=== PATIENT | female | born 1965 | race American Indian/Alaskan Native ===

== ENCOUNTER 2019-08-09 22:29 | Emergency (ER) | payer MEDICAID ==
[2019-08-09 23:32] VITALS: BP 159/80
[2019-08-10] MEDS ORDERED: IPRATROPIUM/ALBUTEROL SULFATE 3 ML AMPUL.NEB IH ONE (04:26)
[2019-08-10] MEDS ORDERED: dexAMETHasone 20 MG/5 ML VIAL IM ONE (04:26)
--- NOTE | 2019-08-10 05:31 | Emergency Department Report ---
ED General Adult HPI - General Chief complaint: Dyspnea/Respdistress Stated complaint: DIFF BREATHING COUGH BILATERAL EAR PAIN Time Seen by Provider: 08/10/19 04:15 Source: patient Mode of arrival: Ambulatory Limitations: No Limitations - History of Present Illness Initial comments: Patient is a 54-year-old female presents emergency room with complaints of intermittent URI symptoms for a month. She states she has associated dry cough, itchy dry throat, shortness of breath, bilateral ear pain. She denies any fever, leg swelling, chest pain, any other symptoms. She states that she went to her PCP a month ago and completed a course of azithromycin. She states then a couple weeks ago she went and completed a course of prednisone. States that s he also takes loratadine for allergies. She states she has a past medical history of asthma, hypertension, prediabetes. She denies any allergies medications. - Related Data Previous Rx's Medication Instructions Recorded Last Taken Type Benzonatate [Tessalon Perles] 100 mg PO Q8HR PRN #20 capsule 08/10/19 Unknown Rx Cetirizine HCl [Zyrtec 10mg tab] 10 mg PO DAILY #30 tablet 08/10/19 Unknown Rx Fluticasone [Flonase] 1 spray NS QDAY #1 bottle 08/10/19 Unknown Rx predniSONE [Deltasone] 40 mg PO QDAY 7 Days #14 tab 08/10/19 Unknown Rx Allergies Allergy/AdvReac Type Severity Reaction Status Date / Time No Known Allergies Allergy Unverified 08/09/19 23:33 ED Review of Systems ROS: Stated complaint: DIFF BREATHING COUGH BILATERAL EAR PAIN Other details as noted in HPI Comment: All other systems reviewed and negative ED Past Medical Hx - Past Medical History Hx Hypertension: Yes Hx Deep Vein Thrombosis: Yes (on Plavix stent in R leg) - Social History Smoking Status: Current Every Day Smoker Substance Use Type: None - Medications Home Medications: Home Medications Medication Instructions Recorded Confirmed Last Taken Type Benzonatate [Tessalon Perles] 100 mg PO Q8HR PRN #20 capsule 08/10/19 Unknown Rx Cetirizine HCl [Zyrtec 10mg tab] 10 mg PO DAILY #30 tablet 08/10/19 Unknown Rx Fluticasone [Flonase] 1 spray NS QDAY #1 bottle 08/10/19 Unknown Rx predniSONE [Deltasone] 40 mg PO QDAY 7 Days #14 tab 08/10/19 Unknown Rx ED Physical Exam - General Limitations: No Limitations General appearance: alert, in no apparent distress - Head Head exam: Present: atraumatic, normocephalic - Eye Eye exam: Present: normal appearance - ENT ENT exam: Present: normal orophraynx, mucous membranes moist, TM's normal bilaterally, normal external ear exam - Respiratory Respiratory exam: Present: wheezes (mild expiratory). Absent: respiratory distress, rales, rhonchi, stridor, chest wall tenderness, accessory muscle use, decreased breath sounds, prolonged expiratory - Cardiovascular Cardiovascular Exam: Present: regular rate, normal rhythm, normal heart sounds. Absent: systolic murmur, diastolic murmur, rubs, gallop - Neurological Exam Neurological exam: Present: alert, oriented X3 - Psychiatric Psychiatric exam: Present: normal affect, normal mood - Skin Skin exam: Present: warm, dry, intact ED Course Vital Signs 08/09/19 08/10/19 23:27 05:46 Temperature 98.3 F Pulse Rate 89 94 H Respiratory 18 18 Rate Blood Pressure 159/80 O2 Sat by Pulse 96 98 Oximetry ED Medical Decision Making - Medical Decision Making Patient is a 54-year-old female presents emergency room with complaints of intermittent URI symptoms for a month. She states she has associated dry cough, itchy dry throat, shortness of breath, bilateral ear pain. She denies any fever, leg swelling, chest pain, any other symptoms. She states that she went to her PCP a month ago and completed a course of azithromycin. She states then a couple weeks ago she went and completed a course of prednisone. States that she also takes loratadine for allergies. She states she has a past medical history of asthma, hypertension, prediabetes. She denies any allergies medications. VSS. on exam: mild expiratory wheeze, no rhonchi or rales. no clinical s/sx of PNA. wells criteria is very low risk for PE. pt given duoneb an d steroids and wheezing has completely resolved and pt has good air movement. symptoms and examination consistent with allergies/asthma. advised pt please take medication as prescribed. Stop taking the loratadine. May use a humidifier. May use warm saltwater gargles, drink warm tea, eat warm soup broth. Follow-up with your primary care doctor in the next 2-3 days. Return to the emergency room for any new or worsening symptoms. - Differential Diagnosis URI, PNA, bronchitis, asthma, allergies, viral syndrome Critical care attestation.: If time is entered above; I have spent that time in minutes in the direct care of this critically ill patient, excluding procedure time. ED Disposition Clinical Impression: Allergies Qualifiers: Encounter type: initial encounter Qualified Code(s): T78.40XA - Allergy, unspecified, initial encounter Asthma Qualifiers: Asthma severity: unspecified severity Asthma persistence: unspecified Asthma complication type: with acute exacerbation Qualified Code(s): J45.901 - Unspecified asthma with (acute) exacerbation Disposition: TO HOME OR SELFCARE Is pt being admited?: No Does the pt Need Aspirin: No Condition: Stable Instructions: Asthma (ED), Allergies (ED) Additional Instructions: please take medication as prescribed. Stop taking the loratadine. May use a humidifier. May use warm saltwater gargles, drink warm tea, eat warm soup broth. Follow-up with your primary care doctor in the next 2-3 days. Return to the emergency room for any new or worsening symptoms. Prescriptions: predniSONE [Deltasone] 40 mg PO QDAY 7 Days #14 tab Fluticasone [Flonase] 1 spray NS QDAY #1 bottle Benzonatate [Tessalon Perles] 100 mg PO Q8HR PRN #20 capsule PRN Reason: cough' Cetirizine HCl [Zyrtec 10mg tab] 10 mg PO DAILY #30 tablet Referrals: PRIMARY CARE, [Primary Care Provider] - 2-3 Days Time of Disposition: 05:29 Print Language: NEPALI
== END 2019-08-10 05:46 | disposition home or self-care (01) ==
LOC: ED 22:29
DX: T78.40XA Allergy, unspecified, initial encounter (principal); J45.909 Unspecified asthma, uncomplicated; H92.03 Otalgia, bilateral; I10 Essential (primary) hypertension; F17.200 Nicotine dependence, unspecified, uncomplicated; Z86.718 Personal history of other venous thrombosis and embolism; Z79.02 Long term (current) use of antithrombotics/antiplatelets; Z79.899 Other long term (current) drug therapy; X58.XXXA Exposure to other specified factors, initial encounter; Y93.89 Activity, other specified; Y92.89 Other specified places as the place of occurrence of the external cause; Y99.8 Other external cause status
CPT/HCPCS: 94640; 96372; 99282; J1100

== ENCOUNTER 2019-09-06 17:38 | Emergency (ER) | payer MEDICAID ==
--- NOTE | 2019-09-06 19:52 | Emergency Department Report ---
Blank Doc - Documentation Documentation: 54-year-old female that presents with URI symptoms. This initial assessment/diagnostic orders/clinical plan/treatment(s) is/are subject to change based on patient's health status, clinical progression and re- assessment by fellow clinical providers in the ED. Further treatment and workup at subsequent clinical providers discretion. Patient/guardians urged not to elope from the ED as their condition may be serious if not clinically assessed and managed. Initial orders include: 1- Patient sent to [facility] for further evaluation and treatment 2- CXR
--- NOTE | 2019-09-06 20:52 | XRay Report ---
CHEST 2 VIEWS INDICATION: cough. COMPARISON: None. FINDINGS: Support devices: None. Heart: Within normal limits. Lungs/Pleura: No acute air space or interstitial disease. No significant pleural effusion. IMPRESSION: No acute findings. Signer Name: Jordan Urrutia MD Signed: 09/06/2019 8:48 PM Workstation Name: [id number]
--- NOTE | 2019-09-06 23:05 | Emergency Department Report ---
HPI - General Chief Complaint: Upper Respiratory Infection Time Seen by Provider: 09/06/19 19:52 - HPI HPI: 54-year-old -N[place]alese female presents to the emergency department with a complaint of a productive cough with yellowish sputum and some body aches. The patient was here on 08/10/19 for similar symptoms and was discharged home with Tessalon Perles, Zyrtec, Flonase and some prednisone. She says that the symptoms didn't go away but then they returned. She has complains of some pain to the left side of the neck where she thinks that she has a lymph node. She has a past medical history of DVT, hypertension, hypercholesterolemia. She goes to [facility] for primary care needs. No recent travel. ED Past Medical Hx - Past Medical History Previous Medical History?: Yes Hx Hypertension: Yes Hx Deep Vein Thrombosis: Yes (on Plavix stent in R leg) Additional medical history: high cholesterol - Social History Smoking Status: Former Smoker Substance Use Type: None - Medications Home Medications: Home Medications Medication Instructions Recorded Confirmed Last Taken Type Cetirizine HCl [Zyrtec 10mg tab] 10 mg PO DAILY #30 tablet 08/10/19 Unknown Rx Fluticasone [Flonase] 1 spray NS QDAY #1 bottle 08/10/19 Unknown Rx predniSONE [Deltasone] 40 mg PO QDAY 7 Days #14 tab 08/10/19 Unknown Rx Albuterol INH(or & Nicu Only) 2 puff IH QID PRN #1 inh 09/07/19 Unknown Rx [ProAir HFA Inhaler] Benzonatate [Tessalon Perles] 100 mg PO Q8HR PRN #20 capsule 09/07/19 Unknown Rx Oseltamivir [Tamiflu] 75 mg PO BID #10 cap 09/07/19 Unknown Rx ED Review of Systems ROS: Stated complaint: FLU SYM Other details as noted in HPI Comment: All other systems reviewed and negative Constitutional: diaphoresis. denies: chills, fever Eyes: denies: eye pain, vision change ENT: denies: ear pain, throat pain Respiratory: cough. denies: shortness of breath Cardiovascular: denies: chest pain, palpitations Gastrointestinal: denies: abdominal pain, vomiting Genitourinary: denies: dysuria, discharge Musculoskeletal: myalgia. denies: joint swelling Skin: denies: rash, lesions Neurological: denies: headache, weakness Physical Exam - Physical Exam Vital Signs: Vital Signs 09/06/19 09/06/19 19:58 21:46 Temperature 98.7 F 98.9 F Pulse Rate 103 H 102 H Respiratory 18 18 Rate Blood Pressure 149/83 Blood Pressure 135/76 [Right] O2 Sat by Pulse 98 99 Oximetry Physical Exam: GENERAL: The patient is well-developed well-nourished. HEENT: Normocephalic. Atraumatic. Patient has moist mucous membranes. Normal-appearing bilateral external ear canals and tympanic membranes. EYES: Extraocular motions are intact. NECK: Supple. Trachea is midline CHEST/LUNGS: Clear to auscultation. No tachypnea or accessory muscle use. No cough heard during examination. There is no respiratory distress noted. HEART/CARDIOVASCULAR: Regular. There is no tachycardia. ABDOMEN: Abdomen is soft, nontender. Patient has normal bowel sounds. SKIN: Skin is warm and dry. NEURO: The patient is awake, alert, and oriented. The patient is cooperative. The patient has no focal neurologic deficits. Normal speech. MUSCULOSKELETAL: There is no tenderness or deformity. There is no evidence of acute injury. ED Course Vital Signs 09/06/19 09/06/19 19:58 21:46 Temperature 98.7 F 98.9 F Pulse Rate 103 H 102 H Respiratory 18 18 Rate Blood Pressure 149/83 Blood Pressure 135/76 [Right] O2 Sat by Pulse 98 99 Oximetry ED Medical Decision Making - Radiology Data Radiology results: image reviewed interpreted by me: Chest x-ray does not show any pneumonia, pneumothorax, focal consolidation, pleural effusions, or any other acute process. - Medical Decision Making This patient presents to the emergency department with the complaint of a productive cough that she was seen for here in mid July and then has since returned. On examination she does not appear in any acute or respiratory distress. Chest x-ray does not show any pneumonia, pleural effusions, or any other acute process. The patient's granddaughter is currently being seen here for some other symptoms and was found to have influenza A. This patient did not receive any flu vaccination this year and has obviously been exposed to her granddaughter. She has also been prescribed Tamiflu, on top of the Tessalon Perles and albuterol inhaler. She also has been instructed to follow-up with her primary care physician and to return to the ER with any worsening of her symptoms or any acute distress. - Differential Diagnosis bronchitis, viral URI, pneumonia, influenza Critical Care Time: No Critical care attestation.: If time is entered above; I have spent that time in minutes in the direct care of this critically ill patient, excluding procedure time. ED Disposition Clinical Impression: Viral upper respiratory infection, Bronchitis Disposition: TO HOME OR SELFCARE Is pt being admited?: No Condition: Stable Instructions: Upper Respiratory Infection (ED), Acute Bronchitis (ED) Additional Instructions: Please follow up with your primary care physician in the next few days. Return to the emergency Department with any worsening of your symptoms or any acute distress. Prescriptions: Albuterol INH(or & Nicu Only) [ProAir HFA Inhaler] 2 puff IH QID PRN #1 inh PRN Reason: Shortness Of Breath Oseltamivir [Tamiflu] 75 mg PO BID #10 cap Benzonatate [Tessalon Perles] 100 mg PO Q8HR PRN #20 capsule PRN Reason: cough' Referrals: PRIMARY CARE, [Primary Care Provider] - 3-5 Days Time of Disposition: 02:51
[2019-09-07 01:17] VITALS: BP 135/81
== END 2019-09-07 01:18 | disposition home or self-care (01) ==
LOC: ED 17:38
DX: J40 Bronchitis, not specified as acute or chronic (principal); J06.9 Acute upper respiratory infection, unspecified; I10 Essential (primary) hypertension; E78.00 Pure hypercholesterolemia, unspecified; Z87.891 Personal history of nicotine dependence; Z79.899 Other long term (current) drug therapy
CPT/HCPCS: 71046

== ENCOUNTER 2019-10-24 23:34 | Emergency (ER) | payer MEDICAID ==
--- NOTE | 2019-10-25 00:21 | XRay Report ---
CHEST 1 VIEW INDICATION / CLINICAL INFORMATION: Chest Pain. COMPARISON: 09/06/2019 FINDINGS: SUPPORT DEVICES: None. HEART / MEDIASTINUM: No significant abnormality. LUNGS / PLEURA: No significant pulmonary or pleural abnormality. No pneumothorax. ADDITIONAL FINDINGS: No significant additional findings. IMPRESSION: 1. No significant change Signer Name: Morteza Elizondo MD Signed: 10/25/2019 12:17 AM Workstation Name: [id number]
[2019-10-25 00:24] LABS: Basophils # (Auto) 0.1 K/mm3 (0.0-0.1); Basophils % (Auto) 0.7 % (0.0-1.8); Eosinophils # (Auto) 0.2 K/mm3 (0.0-0.4); Hemoglobin 11.8 gm/dl (10.1-14.3); Lymphocytes # (Auto) 3.5 K/mm3 (1.2-5.4); Lymphocytes % (Auto) 29.4 % (13.4-35.0); Mean Corpuscular HGB Conc 33 % (30-34); Mean Corpuscular Volume 74 fl (79-97); Monocytes # (Auto) 0.7 K/mm3 (0.0-0.8); Monocytes % (Auto) 5.8 % (0.0-7.3); Platelet Count 372 K/mm3 (140-440); Red Blood Count 4.85 M/mm3 (3.65-5.03); Red Cell Distribution Width 16.3 % (13.2-15.2)
[2019-10-25 00:39] LABS: Bacteria,Urine 1+ /HPF (Negative); Bilirubin,Urine NEG (Negative); Blood,Urine NEG (Negative); Color,Urine Straw (Yellow); Protein,Urine <15 mg/dL mg/dL (Negative); Urobilinogen,Urine < 2.0 mg/dL (<2.0)
[2019-10-25 00:45] LABS: BUN/Creatinine Ratio 18; Blood Urea Nitrogen 14 mg/dL (7-17); Hemolysis Index 5
[2019-10-25] MEDS ORDERED: IBUPROFEN 400 MG TAB PO ONE (01:43)
[2019-10-25] MEDS ORDERED: ACETAMINOPHEN 500 MG TAB PO ONE (01:43)
[2019-10-25] MEDS ORDERED: FAMOTIDINE 20 MG TAB PO ONE (01:43)
[2019-10-25] MEDS ORDERED: SUCRALFATE 1 GM/10 ML ORAL LIQD PO ONE (01:43)
--- NOTE | 2019-10-25 01:47 | Emergency Department Report ---
ED General Adult HPI - General Chief complaint: Chest Pain Stated complaint: CONSTIPATION, CHILLS, FREQUENCY URINATING Time Seen by Provider: 10/25/19 00:53 Source: patient, RN notes reviewed Mode of arrival: Ambulatory Limitations: No Limitations - History of Present Illness Initial comments: Primary care doctor: [facility] Past medical history: Obesity, peripheral artery disease, stent in the right leg, hypertension, high cholesterol on Plavix. 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 There is no fever, vomiting, diaphoresis, there is no new exertional shortness of breath. To me, she makes no complaint of bladder or bowel retention or incontinence. She has left-sided chest wall pain, which is intermittent, and does not radiate anywhere. To me, she does not endorse shortness of breath. She is passing gas. She is not having abdominal pain. No recent aspirin consumption. Chest wall pain aching and throbbing, increases with palpation, and decreases with rest. Sensation of acid reflux pain does not appear to have exacerbating or relieving factors that she is aware of. Constipation does not appear to have exacerbating or relieving factors that she is aware of. -: Gradual, days(s) Location: chest Radiation: other Quality: other Consistency: other Improves with: other Worsens with: other - Related Data Previous Rx's Medication Instructions Recorded Last Taken Type Cetirizine HCl [Zyrtec 10mg tab] 10 mg PO DAILY #30 tablet 08/10/19 Unknown Rx Fluticasone [Flonase] 1 spray NS QDAY #1 bottle 08/10/19 Unknown Rx predniSONE [Deltasone] 40 mg PO QDAY 7 Days #14 tab 08/10/19 Unknown Rx Albuterol INH(or & Nicu Only) 2 puff IH QID PRN #1 inh 09/07/19 Unknown Rx [ProAir HFA Inhaler] Benzonatate [Tessalon Perles] 100 mg PO Q8HR PRN #20 capsule 09/07/19 Unknown Rx Oseltamivir [Tamiflu] 75 mg PO BID #10 cap 09/07/19 Unknown Rx Acetaminophen [Non-Aspirin Extra 500 mg PO Q6HR PRN #30 tablet 10/25/19 Unknown Rx Strength] Famotidine [Pepcid] 20 mg PO BID #60 tablet 10/25/19 Unknown Rx Allergies Allergy/AdvReac Type Severity Reaction Status Date / Time No Known Allergies Allergy Verified 09/06/19 17:43 ED Review of Systems ROS: Stated complaint: CONSTIPATION, CHILLS, FREQUENCY URINATING Other details as noted in HPI Constitutional: chills. denies: fever Eyes: denies: eye discharge ENT: denies: congestion Respiratory: denies: wheezing Cardiovascular: chest pain. denies: syncope Gastrointestinal: constipation. denies: abdominal pain, nausea, vomiting, diarrhea Genitourinary: denies: dysuria, hematuria, discharge Musculoskeletal: denies: back pain Skin: as per HPI Neurological: as per HPI Psychiatric: as per HPI Hematological/Lymphatic: as per HPI ED Past Medical Hx - Past Medical History Previous Medical History?: Yes Hx Hypertension: Yes Hx Deep Vein Thrombosis: Yes (on Plavix stent in R leg) Additional medical history: high cholesterol - Surgical History Past Surgical History?: Yes Additional Surgical History: Stent placed Right Leg - Social History Smoking Status: Former Smoker - Medications Home Medications: Home Medications Medication Instructions Recorded Confirmed Last Taken Type Cetirizine HCl [Zyrtec 10mg tab] 10 mg PO DAILY #30 tablet 08/10/19 Unknown Rx Fluticasone [Flonase] 1 spray NS QDAY #1 bottle 08/10/19 Unknown Rx predniSONE [Deltasone] 40 mg PO QDAY 7 Days #14 tab 08/10/19 Unknown Rx Albuterol INH(or & Nicu Only) 2 puff IH QID PRN #1 inh 09/07/19 Unknown Rx [ProAir HFA Inhaler] Benzonatate [Tessalon Perles] 100 mg PO Q8HR PRN #20 capsule 09/07/19 Unknown Rx Oseltamivir [Tamiflu] 75 mg PO BID #10 cap 09/07/19 Unknown Rx Acetaminophen [Non-Aspirin Extra 500 mg PO Q6HR PRN #30 tablet 10/25/19 Unknown Rx Strength] Famotidine [Pepcid] 20 mg PO BID #60 tablet 10/25/19 Unknown Rx ED Physical Exam - General Limitations: No Limitations General appearance: alert, in no apparent distress - Head Head exam: Present: atraumatic, normocephalic - Eye Eye exam: Present: normal appearance, EOMI. Absent: nystagmus - ENT ENT exam: Present: normal exam, normal orophraynx, mucous membranes moist, normal external ear exam - Neck Neck exam: Present: normal inspection, full ROM. Absent: tenderness, meningismus - Respiratory Respiratory exam: Present: normal lung sounds bilaterally, chest wall tenderne ss. Absent: respiratory distress, wheezes, rales, rhonchi, stridor - Cardiovascular Cardiovascular Exam: Present: regular rate, normal rhythm, normal heart sounds. Absent: bradycardia, tachycardia, irregular rhythm, systolic murmur, diastolic murmur, rubs, gallop - GI/Abdominal GI/Abdominal exam: Present: soft, normal bowel sounds. Absent: distended, tenderness, guarding, rebound, rigid, pulsatile mass - Extremities Exam Extremities exam: Present: normal inspection, full ROM, other (2+ pulses noted in the bilateral upper and lower extremities. There is no palpable cord. negative Homans sign. Muscular compartments are soft. The pelvis is stable.). Absent: pedal edema, calf tenderness - Back Exam Back exam: Present: normal inspection, full ROM. Absent: tenderness, CVA tenderness (R), CVA tenderness (L), paraspinal tenderness, vertebral tenderness - Neurological Exam Neurological exam: Present: alert, other (There is no facial droop. The tongue is midline. Extraocular movements are intact bilaterally. There is 5 out of 5 strength in bilateral upper and lower extremities. Sensation is intact to light touch bilateral upper and lower extremities. ). Absent: motor sensory deficit - Psychiatric Psychiatric exam: Present: anxious - Skin Skin exam: Present: warm, dry, intact, normal color. Absent: rash ED Course Vital Signs 10/24/19 10/25/19 23:37 01:46 Temperature 99.0 F Pulse Rate 107 H 86 Respiratory 18 18 Rate Blood Pressure 176/87 Blood Pressure 151/78 [Right] O2 Sat by Pulse 97 97 Oximetry ED Medical Decision Making - Lab Data Result diagrams: 10/24/19 23:55 10/24/19 23:55 Vital Signs 10/24/19 10/25/19 23:37 01:46 Temperature 99.0 F Pulse Rate 107 H 86 Respiratory 18 18 Rate Blood Pressure 176/87 Blood Pressure 151/78 [Right] O2 Sat by Pulse 97 97 Oximetry Lab Results 10/24/19 10/24/19 10/25/19 Range/Units 23:55 23:55 00:17 WBC 12.0 H (4.5-11.0) K/mm3 RBC 4.85 (3.65-5.03) M/mm3 Hgb 11.8 (10.1-14.3) gm/dl Hct 36.0 (30.3-42.9) % MCV 74 L (79-97) fl MCH 24 L (28-32) pg MCHC 33 (30-34) % RDW 16.3 H (13.2-15.2) % Plt Count 372 (140-440) K/mm3 Lymph % (Auto) 29.4 (13.4-35.0) % [place] % (Auto) 5.8 (0.0-7.3) % Eos % (Auto) 2.0 (0.0-4.3) % Baso % (Auto) 0.7 (0.0-1.8) % Lymph # 3.5 (1.2-5.4) K/mm3 [place] # 0.7 (0.0-0.8) K/mm3 Eos # 0.2 (0.0-0.4) K/mm3 Baso # 0.1 (0.0-0.1) K/mm3 Seg Neutrophils % 62.1 (40.0-70.0) % Seg Neutrophils # 7.5 (1.8-7.7) K/mm3 Sodium 140 (137-145) mmol/L Potassium 3.9 (3.6-5.0) mmol/L Chloride 99.5 (98-107) mmol/L Carbon Dioxide 25 (22-30) mmol/L Anion Gap 19 mmol/L BUN 14 (7-17) mg/dL Creatinine 0.8 (0.7-1.2) mg/dL Estimated GFR > 60 ml/min BUN/Creatinine Ratio 18 % Glucose 133 H (65-100) mg/dL Calcium 10.0 (8.4-10.2) mg/dL Magnesium (1.7-2.3) mg/dL Total Creatine Kinase (30-135) units/L Troponin T < 0.010 (0.00-0.029) ng/mL Urine Color Straw (Yellow) Urine Turbidity Clear (Clear) Urine pH 6.0 (5.0-7.0) Ur Specific [place] 1.005 (1.003-1.030) Urine Protein <15 mg/dl (Negative) mg/dL Urine Glucose (UA) Neg (Negative) mg/dL Urine Ketones Neg (Negative) mg/dL Urine Blood Neg (Negative) Urine Nitrite Neg (Negative) Urine Bilirubin Neg (Negative) Urine Urobilinogen < 2.0 (<2.0) mg/dL Ur Leukocyte Esterase Neg (Negative) Urine WBC (Auto) 1.0 (0.0-6.0) /HPF Urine RBC (Auto) 1.0 (0.0-6.0) /HPF U Epithel Cells (Auto) < 1.0 (0-13.0) /HPF Urine Bacteria (Auto) 1+ (Negative) /HPF 10/25/19 Range/Units 01:56 WBC (4.5-11.0) K/mm3 RBC (3.65-5.03) M/mm3 Hgb (10.1-14.3) gm/dl Hct (30.3-42.9) % MCV (79-97) fl MCH (28-32) pg MCHC (30-34) % RDW (13.2-15.2) % Plt Count (140-440) K/mm3 Lymph % (Auto) (13.4-35.0) % [place] % (Auto) (0.0-7.3) % Eos % (Auto) (0.0-4.3) % Baso % (Auto) (0.0-1.8) % Lymph # (1.2-5.4) K/mm3 [place] # (0.0-0.8) K/mm3 Eos # (0.0-0.4) K/mm3 Baso # (0.0-0.1) K/mm3 Seg Neutrophils % (40.0-70.0) % Seg Neutrophils # (1.8-7.7) K/mm3 Sodium (137-145) mmol/L Potassium (3.6-5.0) mmol/L Chloride (98-107) mmol/L Carbon Dioxide (22-30) mmol/L Anion Gap mmol/L BUN (7-17) mg/dL Creatinine (0.7-1.2) mg/dL Estimated GFR ml/min BUN/Creatinine Ratio % Glucose (65-100) mg/dL Calcium (8.4-10.2) mg/dL Magnesium 2.00 (1.7-2.3) mg/dL Total Creatine Kinase 268 H (30-135) units/L Troponin T < 0.010 (0.00-0.029) ng/mL Urine Color (Yellow) Urine Turbidity (Clear) Urine pH (5.0-7.0) Ur Specific [place] (1.003-1.030) Urine Protein (Negative) mg/dL Urine Glucose (UA) (Negative) mg/dL Urine Ketones (Negative) mg/dL Urine Blood (Negative) Urine Nitrite (Negative) Urine Bilirubin (Negative) Urine Urobilinogen (<2.0) mg/dL Ur Leukocyte Esterase (Negative) Urine WBC (Auto) (0.0-6.0) /HPF Urine RBC (Auto) (0.0-6.0) /HPF U Epithel Cells (Auto) (0-13.0) /HPF Urine Bacteria (Auto) (Negative) /HPF - EKG Data -: EKG Interpreted by Ms EKG shows normal: sinus rhythm Rate: normal - EKG Data When compared to previous EKG there are: previous EKG unavailable 10/25/19 03:11 EKG #1 shows a sinus tachycardia, 100 bpm, borderline left ventricular hypertrophy, normal axis, QTC within normal limits, no obvious ST abnormalities, the EKG is not a STEMI. EKG #2 is unchanged from prior. Both EKGs fairly unremarkable, not consistent with ST elevation myocardial infarction. , - Radiology Data Radiology results: report reviewed, image reviewed Print Report Referring Physician: ED DOC Patient Name: SHAUNNA FITZGERALD Date of : 1965 Sex: Female Report Date: 2019-10-25 Report Status: Finalized Findings [facility] [address] [place] [address] XRay Report Signed Patient: SHAUNNA FITZGERALD MR#: [id number] : 1965 Acct:[id number] Age/Sex: 54 / F ADM Date: 10/24/19 Loc: ED Attending Dr: Ordering Physician: ED DOC, MD Date of Service: 10/24/19 Procedure(s): XR chest 1V ap Accession Number(s): [id number] cc: SUMA ROTH MD Fluoro Time In Minutes: CHEST 1 VIEW INDICATION / CLINICAL INFORMATION: Chest Pain. COMPARISON: 09/06/2019 FINDINGS: SUPPORT DEVICES: None. HEART / MEDIASTINUM: No significant abnormality. LUNGS / PLEURA: No significant pulmonary or pleural abnormality. No pneumothorax. ADDITIONAL FINDINGS: No significant additional findings. IMPRESSION: 1. No significant change Signer Name: Morteza Elizondo MD Signed: 10/25/2019 12:17 AM Workstation Name: [id number] Transcribed By: IAN Dictated By: Morteza Elizondo MD Electronically Authenticated By: Morteza Elizondo MD Signed Date/Time: 10/25/1916 DD/ - Medical Decision Making Differential diagnosis, including but not limited to: GERD, gastritis, hiatal hernia, pneumonia, costochondritis, acute coronary syndrome, constipation, acid reflux Assessment and plan: 54-year-old female with reproducible chest wall pain, EKG unchanged x2, resolved tachycardia, no pulmonary embolism or DVT risk factors, low risk by Wells criteria, low risk for major adverse cardiac event as per heart score, low risk by MONAE score, presenting with reproducible chest wall pain, and multiple secondary complaints. She is afebrile with reassuring vital signs. Her physical exam is benign and unremarkable, with the exception of reproducible chest wall pain. We discussed diet and left some modifications for presumed constipation, GERD/gastritis/reflux. Her symptoms were improved with supportive care. The patient is suitable to follow-up with an outpatient primary care doctor or web services architect to complete a cardiac risk stratification. She does not appear to have an emergent medical condition at this time. Critical care attestation.: If time is entered above; I have spent that time in minutes in the direct care of this critically ill patient, excluding procedure time. ED Disposition Clinical Impression: Chest wall pain Disposition: -01 TO HOME OR SELFCARE Is pt being admited?: No Does the pt Need Aspirin: No Condition: Stable Instructions: Chest Pain (ED) Additional Instructions: Avoid consumption of Motrin, ibuprofen, Naprosyn, Aleve, heavy and/or spicy foods. Recommend that patient drink 6 to 8 cups of water per day, and eats plenty of fiber, vegetables, and lean protein. Patient may also purchase Metamucil/fiber [id number], which may facilitate resolution of consti pation. Constipation typically takes weeks to months to improve. We recommend the patient follow-up with her primary care doctor or web services architect for her chest wall pain within the next 5 to 7 days. Avoid alcohol, and heavy and/or spicy foods. Take the pain medications as needed and directed, please return to the emergency room right away with new, worsened or different symptoms, or symptoms not present on the initial emergency room evaluation. Referrals: [facility] [Provider Group] - 3-5 Days [facility] [Provider Group] - 3-5 Days
[2019-10-25 03:47] VITALS: BP 150/76
== END 2019-10-25 03:47 | disposition home or self-care (01) ==
LOC: ED 23:34
DX: R07.89 Other chest pain (principal); R68.83 Chills (without fever); R35.0 Frequency of micturition; K59.00 Constipation, unspecified; I73.9 Peripheral vascular disease, unspecified; E66.9 Obesity, unspecified; I10 Essential (primary) hypertension; E78.00 Pure hypercholesterolemia, unspecified; Z98.890 Other specified postprocedural states; Z79.899 Other long term (current) drug therapy; Z87.891 Personal history of nicotine dependence; Z68.41 Body mass index [BMI] 40.0-44.9, adult
CPT/HCPCS: 36415; 71045; 80048; 81001; 82550; 83735; 84484; 85025; 93005; 93010

== ENCOUNTER 2019-11-14 21:10 | Inpatient (IN) | payer MEDICAID ==
--- NOTE | 2019-11-14 21:14 | Emergency Department Report ---
Blank Doc - Documentation Documentation: 54-year-old female that presents with cp, sob, and fatigue, This initial assessment/diagnostic orders/clinical plan/treatment(s) is/are subject to change based on patient's health status, clinical progression and re- assessment by fellow clinical providers in the ED. Further treatment and workup at subsequent clinical providers discretion. Patient/guardians urged not to elope from the ED as their condition may be serious if not clinically assessed and managed. Initial orders include: 1- Patient sent to [facility] for further evaluation and treatment 2- cardiac workup
[2019-11-14 21:46] LABS: Basophils # (Auto) 0.1 K/mm3 (0.0-0.1); Basophils % (Auto) 0.9 % (0.0-1.8); Eosinophils # (Auto) 0.1 K/mm3 (0.0-0.4); Eosinophils % (Auto) 0.6 % (0.0-4.3); Hematocrit 35.7 % (30.3-42.9); Hemoglobin 11.9 gm/dl (10.1-14.3); Lymphocytes # (Auto) 4.4 K/mm3 (1.2-5.4); Lymphocytes % (Auto) 33.3 % (13.4-35.0); Mean Corpuscular HGB Conc 33 % (30-34); Mean Corpuscular Volume 74 fl (79-97); Monocytes # (Auto) 0.7 K/mm3 (0.0-0.8); Monocytes % (Auto) 5.2 % (0.0-7.3); Platelet Count 427 K/mm3 (140-440); Red Blood Count 4.81 M/mm3 (3.65-5.03); Red Cell Distribution Width 16.2 % (13.2-15.2)
[2019-11-14 21:57] LABS: INR 1.03 (0.87-1.13); Partial Thromboplastin Time 26.3 Sec. (24.2-36.6)
[2019-11-14 22:00] LABS: Alanine Aminotransferase 21 units/L (7-56); Albumin 4.3 g/dL (3.9-5); BUN/Creatinine Ratio 14; Blood Urea Nitrogen 15 mg/dL (7-17); Calcium 9.6 mg/dL (8.4-10.2); Hemolysis Index 3
--- NOTE | 2019-11-14 22:07 | XRay Report ---
CHEST 2 VIEWS INDICATION / CLINICAL INFORMATION: MAIN: Chest Pain and SHORTNESS OF BREATH. COMPARISON: Chest radiograph 10/25/2019 FINDINGS: SUPPORT DEVICES: None. HEART / MEDIASTINUM: No significant abnormality. LUNGS / PLEURA: No significant pulmonary or pleural abnormality. No pneumothorax. ADDITIONAL FINDINGS: Multilevel degenerative disc disease in the thoracic spine. IMPRESSION: No acute finding. No significant change. Signer Name: Jose Jose MD Signed: 11/14/2019 10:02 PM Workstation Name: [id number]
[2019-11-15] MEDS ORDERED: ASPIRIN 81 MG TAB CHEW PO ONE (04:28)
--- NOTE | 2019-11-15 04:33 | Emergency Department Report ---
ED Chest Pain HPI - General Chief Complaint: Chest Pain Stated Complaint: THINKS SHE HAD A HEART ATTACK Time Seen by Provider: 11/14/19 21:13 Source: patient Mode of arrival: Ambulatory Limitations: No Limitations - History of Present Illness Initial Comments: Patient is 54 years old female with history of hypertension, diabetes and peripheral vascular disease status post stent. Patient presented to the ER complaining of left sided chest pain, tightness and heaviness in nature with radiation to the left upper extremity and neck and left jaw. Patient denies any shortness of breath, fever, nausea or vomiting. MD Complaint: chest pain -: Last night Onset: during rest Pain Location: left chest Pain Radiation: LUE, neck, jaw/teeth Severity: moderate Severity scale (0 -10): 5 Quality: tightness, heaviness Consistency: constant - Related Data Previous Rx's Medication Instructions Recorded Last Taken Type Cetirizine HCl [Zyrtec 10mg tab] 10 mg PO DAILY #30 tablet 08/10/19 Unknown Rx Fluticasone [Flonase] 1 spray NS QDAY #1 bottle 08/10/19 Unknown Rx predniSONE [Deltasone] 40 mg PO QDAY 7 Days #14 tab 08/10/19 Unknown Rx Albuterol INH(or & Nicu Only) 2 puff IH QID PRN #1 inh 09/07/19 Unknown Rx [ProAir HFA Inhaler] Benzonatate [Tessalon Perles] 100 mg PO Q8HR PRN #20 capsule 09/07/19 Unknown Rx Oseltamivir [Tamiflu] 75 mg PO BID #10 cap 09/07/19 Unknown Rx Acetaminophen [Non-Aspirin Extra 500 mg PO Q6HR PRN #30 tablet 10/25/19 Unknown Rx Strength] Famotidine [Pepcid] 20 mg PO BID #60 tablet 10/25/19 Unknown Rx Allergies Allergy/AdvReac Type Severity Reaction Status Date / Time No Known Allergies Allergy Verified 09/06/19 17:43 Heart Score - HEART Score History: Moderately suspicious EKG: Non-specific Age: 45-65 Risk factors: > 3 risk factors or hx of atherosclerotic disease Troponin: < normal limit HEART Score: 5 - Critical Actions Critical Actions: 4-6 pts:12-16.6% risk of adverse cardiac event. Should be admitted ED Review of Systems ROS: Stated complaint: THINKS SHE HAD A HEART ATTACK Other details as noted in HPI Comment: All other systems reviewed and negative Constitutional: denies: chills, fever Respiratory: denies: cough, shortness of breath, SOB with exertion Cardiovascular: chest pain Gastrointestinal: denies: abdominal pain, nausea, vomiting, diarrhea, constipation, hematemesis, melena, hematochezia Neurological: denies: headache, weakness ED Past Medical Hx - Past Medical History Hx Hypertension: Yes Hx Deep Vein Thrombosis: Yes (on Plavix stent in R leg) Additional medical history: high cholesterol - Surgical History Additional Surgical History: Stent placed Right Leg - Social History Smoking Status: Never Smoker Substance Use Type: None - Medications Home Medications: Home Medications Medication Instructions Recorded Confirmed Last Taken Type Cetirizine HCl [Zyrtec 10mg tab] 10 mg PO DAILY #30 tablet 08/10/19 Unknown Rx Fluticasone [Flonase] 1 spray NS QDAY #1 bottle 08/10/19 Unknown Rx predniSONE [Deltasone] 40 mg PO QDAY 7 Days #14 tab 08/10/19 Unknown Rx Albuterol INH(or & Nicu Only) 2 puff IH QID PRN #1 inh 09/07/19 Unknown Rx [ProAir HFA Inhaler] Benzonatate [Tessalon Perles] 100 mg PO Q8HR PRN #20 capsule 09/07/19 Unknown Rx Oseltamivir [Tamiflu] 75 mg PO BID #10 cap 09/07/19 Unknown Rx Acetaminophen [Non-Aspirin Extra 500 mg PO Q6HR PRN #30 tablet 10/25/19 Unknown Rx Strength] Famotidine [Pepcid] 20 mg PO BID #60 tablet 10/25/19 Unknown Rx ED Physical Exam - General Limitations: No Limitations General appearance: alert, in no apparent distress - Head Head exam: Present: atraumatic, normocephalic, normal inspection - Eye Eye exam: Present: normal appearance - ENT ENT exam: Present: normal exam, normal orophraynx, mucous membranes moist - Neck Neck exam: Present: normal inspection, full ROM. Absent: tenderness, meningismus, lymphadenopathy, thyromegaly - Respiratory Respiratory exam: Present: normal lung sounds bilaterally - Cardiovascular Cardiovascular Exam: Present: regular rate, normal rhythm, normal heart sounds - GI/Abdominal GI/Abdominal exam: Present: soft, normal bowel sounds. Absent: distended, tenderness, guarding, rebound, rigid, organomegaly, mass, bruit, pulsatile mass, hernia - Extremities Exam Extremities exam: Present: normal inspection, full ROM, normal capillary refill. Absent: tenderness, pedal edema, calf tenderness - Back Exam Back exam: Present: normal inspection, full ROM. Absent: CVA tenderness (R), CVA tenderness (L) - Neurological Exam Neurological exam: Present: alert, oriented X3, CN II-XII intact, normal gait, reflexes normal. Absent: motor sensory deficit - Psychiatric Psychiatric exam: Present: normal mood - Skin Skin exam: Present: warm, intact, normal color ED Course Vital Signs 11/14/19 11/15/19 21:16 02:19 Temperature 98.3 F 98.0 F Pulse Rate 111 H 90 Respiratory 20 18 Rate Blood Pressure 190/94 164/84 O2 Sat by Pulse 97 98 Oximetry ED Medical Decision Making - Lab Data Result diagrams: 11/14/19 21:23 11/14/19 21:23 - EKG Data -: EKG Interpreted by Id EKG shows normal: sinus rhythm Rate: tachycardia - EKG Data Interpretation: no acute changes - Radiology Data Radiology results: report reviewed - Medical Decision Making Patient is 54 years old female with history of hypertension, diabetes and peripheral vascular disease status post stent. Patient presented to the ER complaining of left sided chest pain, tightness and heaviness in nature with radiation to the left upper extremity and neck and left jaw. Patient denies any shortness of breath, fever, nausea or vomiting. EKG showed no ST elevation. Chest x-ray is unremarkable. Labs reviewed and is unremarkable including a negative troponin. Patient chest pain is typical for a ngina. I discussed the patient with Dr. Lovell, he agreed to admit the patient to medical service for further management. Critical care attestation.: If time is entered above; I have spent that time in minutes in the direct care of this critically ill patient, excluding procedure time. ED Disposition Clinical Impression: Chest pain Disposition: OP ADMIT IP TO THIS HOSP Is pt being admited?: Yes Condition: Stable Instructions: Chest Pain (ED) Referrals: [place] [Other] - 3-5 Days
[2019-11-15] MEDS ORDERED: NITROGLYCERIN 0.4 MG TAB SUBL SL PRN (05:18)
[2019-11-15] MEDS ORDERED: ACETAMINOPHEN 325 MG TAB PO PRN (05:18)
[2019-11-15] MEDS ORDERED: DEXTROSE 50% IN WATER (25GM) 50 ML SYRINGE IV PRN ×2 (05:18→05:24)
[2019-11-15] MEDS ORDERED: ONDANSETRON 4 MG/2 ML INJ IV PRN (05:18)
[2019-11-15] MEDS ORDERED: MORPHINE 2 MG/1 ML INJ IV PRN (05:18)
[2019-11-15] MEDS ORDERED: MAGNESIUM HYDROXIDE (MOM) ORAL LIQD UDC PO PRN (05:18)
--- NOTE | 2019-11-15 05:30 | History and Physical Report ---
History of Present Illness Date of examination: 11/15/19 Date of admission: 11/15/2019 Chief complaint: Chest pain History of present illness: 54-year-old -[place]og[place] female with known history of hypertension, diabetes mellitus and peripheral vascular disease presented to the emergency room today complaining of left-sided chest pain. Pain is said to be sharp radiating towards the left upper extremity and left side of the jaw. There is no known relieving or exacerbating factor. Patient denies any headache or dizziness, no nausea vomiting, no abdominal pain. Patient indicates that she has been quite compliant with her medications. Work-up in the emergency room so far has been unremarkable. Past History Past Medical History: diabetes, hypertension, hyperlipidemia, PVD Past Surgical History: Other (Stent placement in the right lower extremity) Social history: no significant social history Medications and Allergies Allergies Allergy/AdvReac Type Severity Reaction Status Date / Time No Known Allergies Allergy Verified 09/06/19 17:43 Home Medications Medication Instructions Recorded Confirmed Last Taken Type Cetirizine HCl [Zyrtec 10mg tab] 10 mg PO DAILY #30 tablet 08/10/19 Unknown Rx Fluticasone [Flonase] 1 spray NS QDAY #1 bottle 08/10/19 Unknown Rx predniSONE [Deltasone] 40 mg PO QDAY 7 Days #14 tab 08/10/19 Unknown Rx Albuterol INH(or & Nicu Only) 2 puff IH QID PRN #1 inh 09/07/19 Unknown Rx [ProAir HFA Inhaler] Benzonatate [Tessalon Perles] 100 mg PO Q8HR PRN #20 capsule 09/07/19 Unknown Rx Oseltamivir [Tamiflu] 75 mg PO BID #10 cap 09/07/19 Unknown Rx Acetaminophen [Non-Aspirin Extra 500 mg PO Q6HR PRN #30 tablet 10/25/19 Unknown Rx Strength] Famotidine [Pepcid] 20 mg PO BID #60 tablet 10/25/19 Unknown Rx Active Meds: Active Medications Acetaminophen (Tylenol) 650 mg PO Q4H PRN PRN Reason: Pain MILD(1-3)/Fever >100.5/ZEPEDA Aspirin (Ecotrin) 325 mg PO QDAY [facility] Dextrose (D50w (25gm) Syringe) 50 ml IV Q30MIN PRN; Protocol PRN Reason: Hypoglycemia Dextrose (D50w (25gm) Syringe) 50 ml IV Q30MIN PRN; Protocol PRN Reason: Hypoglycemia Insulin Human Lispro (Humalog) 0 unit SUB-Q ACHS CONNER; Protocol Magnesium Hydroxide (Milk Of Magnesia) 30 ml PO Q4H PRN PRN Reason: Constipation Morphine Sulfate (Morphine) 2 mg IV Q5MIN PRN PRN Reason: Chest Pain unrelieved by NTG Nitroglycerin (Nitrostat) 0.4 mg SL Q5M PRN PRN Reason: Chest Pain Ondansetron HCl (Zofran) 4 mg IV Q8H PRN PRN Reason: Nausea And Vomiting Sodium Chloride (Sodium Chloride Flush Syringe 10 Ml) 10 ml IV PRN PRN PRN Reason: LINE FLUSH Sodium Chloride (Sodium Chloride Flush Syringe 10 Ml) 10 ml IV BID CONNER Sodium Chloride (Sodium Chloride Flush Syringe 10 Ml) 10 ml IV PRN PRN PRN Reason: LINE FLUSH Review of Systems Constitutional: no fever, no chills Cardiovascular: chest pain, no palpitations Respiratory: shortness of breath, no cough Gastrointestinal: no abdominal pain, no nausea, no vomiting, no diarrhea Genitourinary Female: no dysuria, no hematuria Musculoskeletal: no neck pain, no low back pain Integumentary: no rash, no pruritis Neurological: no headaches, no confusion Exam - Constitutional Vitals: Temp Pulse Resp BP Pulse Ox 98.2 F 79 15 176/80 100 11/15/19 04:35 11/15/19 04:35 11/15/19 04:35 11/15/19 04:35 11/15/19 04:35 General appearance: Present: no acute distress, well-nourished - EENT Eyes: Present: PERRL, EOM intact ENT: hearing intact, clear oral mucosa, dentition normal - Neck Neck: Present: supple, normal ROM - Respiratory Respiratory effort: normal Respiratory: bilateral: CTA - Cardiovascular Rhythm: regular Heart Sounds: Present: S1 & S2 - Extremities Extremities: no ischemia, pulses intact, pulses symmetrical, No edema, Full ROM Peripheral Pulses: within normal limits - Abdominal General gastrointestinal: Present: soft, non-tender, non-distended - Integumentary Integumentary: Present: clear, warm, dry - Musculoskeletal Musculoskeletal: strength equal bilaterally - Psychiatric Psychiatric: appropriate mood/affect, intact judgment & insight, cooperative - Neurologic Neurologic: CNII-XII intact, moves all extremities Results - Labs CBC & Chem 7: 11/14/19 21:23 11/14/19 21:23 Labs: Abnormal lab results 11/14/19 11/14/19 Range/Units 21:23 21:23 WBC 13.2 H (4.5-11.0) K/mm3 MCV 74 L (79-97) fl MCH 25 L (28-32) pg RDW 16.2 H (13.2-15.2) % Seg Neutrophils # 7.9 H (1.8-7.7) K/mm3 Glucose 152 H (65-100) mg/dL Assessment and Plan - Patient Problems (1) Chest pain Current Visit: Yes Status: Acute Plan to address problem: We will check serial cardiac enzymes. Patient started on daily aspirin, sublingual nitroglycerin and IV morphine as needed for chest pain. Patient will be scheduled for echocardiogram and stress test. (2) Hypertension Current Visit: Yes Status: Acute Plan to address problem: We will resume routine home medications once reconciled. Will monitor vital signs closely (3) Diabetes mellitus Current Visit: Yes Status: Acute Plan to address problem: We will monitor Accu-Cheks and resume routine home medications. (4) Hyperlipidemia Current Visit: Yes Status: Acute Plan to address problem: We will follow-up on lipid profile. (5) DVT prophylaxis Current Visit: Yes Status: Acute Plan to address problem: Patient placed on subcutaneous heparin. (6) Full code status Current Visit: Yes Status: Acute
[2019-11-15] MEDS ORDERED: HEPARIN 5,000 UNIT/1 ML VIAL ONE (06:03)
[2019-11-15] MEDS: HEPARIN 5,000 UNIT/1 ML VIAL SUB-Q SCH ×2 (06:21→13:29)
[2019-11-15] MEDS ORDERED: REGADENOSON 0.4 MG/5 ML INJ IV ONE (07:07)
--- NOTE | 2019-11-15 10:35 | Event Note ---
Date: 11/15/19 This is a follow-up from an admission earlier this morning. Patient seen in the stress lab. Patient currently denies any chest pain. We will continue to plan as outlined in H&P. Total visit time equals 25 minutes with greater than 50% spent on coordination of care and counseling.
--- NOTE | 2019-11-15 11:10 | Consultation ---
History of Present Illness Consult date: 11/15/19 Requesting physician: PANCHO PENG Consult reason: chest pain History of present illness: This is 54 y/o female with chol , pvd non smoker had two days of chest pain mid sternal sharp, no aggravating or relieving factors, no nausea or vomiting. no sob. came to er for chest pain. pt trop negative and chest pain is better. denies any syncope or fever or chills or cough. Past History Past Medical History: diabetes, hypertension, hyperlipidemia, PVD Past Surgical History: Other (Stent placement in the right lower extremity) Social history: no significant social history Medications and Allergies Allergies Allergy/AdvReac Type Severity Reaction Status Date / Time No Known Allergies Allergy Verified 09/06/19 17:43 Home Medications Medication Instructions Recorded Confirmed Last Taken Type Cetirizine HCl [Zyrtec 10mg tab] 10 mg PO DAILY #30 tablet 08/10/19 Unknown Rx Fluticasone [Flonase] 1 spray NS QDAY #1 bottle 08/10/19 Unknown Rx predniSONE [Deltasone] 40 mg PO QDAY 7 Days #14 tab 08/10/19 Unknown Rx Albuterol INH(or & Nicu Only) 2 puff IH QID PRN #1 inh 09/07/19 Unknown Rx [ProAir HFA Inhaler] Benzonatate [Tessalon Perles] 100 mg PO Q8HR PRN #20 capsule 09/07/19 Unknown Rx Oseltamivir [Tamiflu] 75 mg PO BID #10 cap 09/07/19 Unknown Rx Acetaminophen [Non-Aspirin Extra 500 mg PO Q6HR PRN #30 tablet 10/25/19 Unknown Rx Strength] Famotidine [Pepcid] 20 mg PO BID #60 tablet 10/25/19 Unknown Rx Active Meds: Active Medications Acetaminophen (Tylenol) 650 mg PO Q4H PRN PRN Reason: Pain MILD(1-3)/Fever >100.5/ZEPEDA Aspirin (Ecotrin) 325 mg PO QDAY [facility] Dextrose (D50w (25gm) Syringe) 0 ml IV Q30MIN PRN; Protocol PRN Reason: Hypoglycemia Heparin Sodium (Porcine) (Heparin) 5,000 unit SUB-Q Q8HR CONNER Last Admin: 11/15/19 06:21 Dose: 5,000 unit Documented by: Insulin Human Lispro (Humalog) 0 unit SUB-Q ACHS CONNER; Protocol Magnesium Hydroxide (Milk Of Magnesia) 30 ml PO Q4H PRN PRN Reason: Constipation Morphine Sulfate (Morphine) 2 mg IV Q5MIN PRN PRN Reason: Chest Pain unrelieved by NTG Nitroglycerin (Nitrostat) 0.4 mg SL Q5M PRN PRN Reason: Chest Pain Ondansetron HCl (Zofran) 4 mg IV Q8H PRN PRN Reason: Nausea And Vomiting Sodium Chloride (Sodium Chloride Flush Syringe 10 Ml) 10 ml IV PRN PRN PRN Reason: LINE FLUSH Sodium Chloride (Sodium Chloride Flush Syringe 10 Ml) 10 ml IV BID CONNER Review of Systems All systems: negative (as per hpi) Physical Examination Vital Signs Temp Pulse Resp BP Pulse Ox 98.3 F 111 H 20 190/94 97 11/14/19 21:16 11/14/19 21:16 11/14/19 21:16 11/14/19 21:16 11/14/19 21:16 General appearance: no acute distress, well-nourished HEENT: Positive: PERRL, Mucus Membranes Moist Neck: Positive: neck supple, trachea midline Cardiac: Positive: Reg Rate and Rhythm, S1/S2. Negative: Audible Murmur Lungs: Positive: clear to auscultation, Normal Breath Sounds Neuro: Positive: Grossly Intact Abdomen: Positive: Soft, Active Bowel Sounds. Negative: Tender, Distended Female genitourinary: deferred Skin: Positive: Clear Incision: Cardiac Cath Site Musculoskeletal: No Pain, Normal Range of Motion Extremities: Present: normal. Absent: edema Results 11/14/19 21:23 11/14/19 21:23 Cardiac Enzymes 11/14/19 Range/Units 21:23 AST 17 (5-40) units/L Coagulation 11/14/19 Range/Units 21:23 PT 13.6 (12.2-14.9) Sec. INR 1.03 (0.87-1.13) APTT 26.3 (24.2-36.6) Sec. Lipids 11/15/19 Range/Units 05:38 Triglycerides 85 (2-149) mg/dL Cholesterol 192 (50-199) mg/dL HDL Cholesterol 48 (40-59) mg/dL Cholesterol/HDL Ratio 4.00 % CBC 11/14/19 Range/Units 21:23 WBC 13.2 H (4.5-11.0) K/mm3 RBC 4.81 (3.65-5.03) M/mm3 Hgb 11.9 (10.1-14.3) gm/dl Hct 35.7 (30.3-42.9) % Plt Count 427 (140-440) K/mm3 Lymph # 4.4 (1.2-5.4) K/mm3 [place] # 0.7 (0.0-0.8) K/mm3 Eos # 0.1 (0.0-0.4) K/mm3 Baso # 0.1 (0.0-0.1) K/mm3 Comprehensive Metabolic Panel 11/14/19 Range/Units 21:23 Sodium 138 (137-145) mmol/L Potassium 3.8 (3.6-5.0) mmol/L Chloride 100.5 (98-107) mmol/L Carbon Dioxide 23 (22-30) mmol/L BUN 15 (7-17) mg/dL Creatinine 1.1 (0.7-1.2) mg/dL Glucose 152 H (65-100) mg/dL Calcium 9.6 (8.4-10.2) mg/dL AST 17 (5-40) units/L ALT 21 (7-56) units/L Alkaline Phosphatase 105 (35-129) units/L Total Protein 7.8 (6.3-8.2) g/dL Albumin 4.3 (3.9-5) g/dL - Imaging and Cardiology Stress echo: other (negative lexiscan ekg ) Echo: report reviewed (normal lv function pfo no signficant regurtitations) EKG interpretations - Telemetry EKG Rhythm: Sinus Rhythm (nsr non specfic st-t) Assessment and Plan pt chest pain is probably gi, as negative stress and echo, treat medically , may be discharged from [facility] point of view - Patient Problems (1) PVD (peripheral vascular disease) Current Visit: Yes Status: Chronic (2) Diabetes mellitus Current Visit: Yes Status: Chronic Qualifiers: Diabetes mellitus type: type 2 Diabetes mellitus skilled nursing insulin use: with skilled nursing use Diabetes mellitus complication status: with circulatory complication Diabetes mellitus complication detail: with other circulatory complications Qualified Code(s): E11.59 - Type 2 diabetes mellitus with other circulatory complications; 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
--- NOTE | 2019-11-15 11:17 | Treadmill Report ---
NUCLEAR PERFUSION STUDY REASON FOR STUDY: Chest pain. READING PHYSICIAN: Dr. Griffin. IMAGING PROTOCOL: The patient received 10 mCi of Technetium 99m Tetrofosmin for resting image and 28 mCi of Technetium 99m Tetrofosmin for stress imaging. The imaging for the whole procedure was completed 30-90 minutes following the initial injection of Technetium 99m Tetrofosmin. The SPECT imaging in the 180 degree arc was performed in the right anterior oblique projection. Computerized reconstruction of the images was performed for analysis. IMAGING RESULTS: Normal cavity size from stress to rest. Normal distribution of radionuclide in the anterior, inferior, septal, and apical regions. Gated SPECT, 55% with no wall motion abnormality. The patient infused Lexiscan with no EKG changes. SUMMARY: 1. Negative Lexiscan EKG. 2. Normal rest and stress myocardial perfusion scan. No significant ischemia. No wall motion abnormality. Gated SPECT, EF 55%. JOB# [id number]
[2019-11-15] MEDS: INSULIN LISPRO 100 UNIT/ML SUB-Q SCH ×2 (11:20→11:37)
--- NOTE | 2019-11-15 16:14 | Discharge Summary ---
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 Pt denied sob. Pt was admitted to hospital with dx of CP. Pt trop negative and EKG with no acute findings. Pt underwent stress test that showed no ischemia. ECHO showed normal LV fxmn and normaal EF. Pt is felt to have received maximal hosp benefit and will d/c home. Etiology of CP is likely GERD. 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 (3) Hyperlipidemia Status: Chronic Qualifiers: Hyperlipidemia type: mixed hyperlipidemia Qualified Code(s): E78.2 - Mixed hyperlipidemia (4) Hypertension Status: Chronic Qualifiers: Hypertension type: essential hypertension Qualified Code(s): I10 - Essential (primary) hypertension Core Measure Documentation - Palliative Care Palliative Care/ Comfort Measures: Not Applicable - Core Measures Any of the following diagnoses?: none Exam - Constitutional Vitals: Temp Pulse Resp BP Pulse Ox 98.5 F 86 18 150/80 95 11/15/19 07:32 11/15/19 14:57 11/15/19 12:36 11/15/19 12:36 11/15/19 12:36 General appearance: Present: no acute distress, well-nourished - EENT Eyes: Present: PERRL ENT: hearing intact, clear oral mucosa - Neck Neck: Present: supple, normal ROM - Respiratory Respiratory effort: normal Respiratory: bilateral: CTA - Cardiovascular Heart Sounds: Present: S1 & S2. Absent: rub, click - Extremities Extremities: pulses symmetrical, No edema Peripheral Pulses: within normal limits - Abdominal General gastrointestinal: Present: soft, non-tender, non-distended, normal bowel sounds Female genitourinary: Present: normal - Integumentary Integumentary: Present: clear, warm, dry - Musculoskeletal Musculoskeletal: gait normal, strength equal bilaterally - Psychiatric Psychiatric: appropriate mood/affect, intact judgment & insight - Neurologic Neurologic: CNII-XII intact, moves all extremities Plan Activity: advance as tolerated Weight Bearing Status: Weight Bear as Tolerated Diet: low fat, low cholesterol, low salt, diabetic Follow up with: POLI MILLER [Other] - 3-5 Days
[2019-11-15 18:20] VITALS: BP 142/61
[2019-11-16] MEDS ORDERED: ASPIRIN EC 325 MG TAB PO SCH (10:00)
== END 2019-11-15 18:21 | disposition home or self-care (01) | DRG 392 ==
LOC: ED 21:10 → 4A 11-15 05:44
PROVIDERS: ADMIT Internal Medicine Geriatric Medicine; ATTEND Hospitalist
DX: K21.9 Gastro-esophageal reflux disease without esophagitis (principal); R07.89 Other chest pain; I10 Essential (primary) hypertension; I73.9 Peripheral vascular disease, unspecified; E78.00 Pure hypercholesterolemia, unspecified; E78.5 Hyperlipidemia, unspecified; Z86.718 Personal history of other venous thrombosis and embolism; E11.59 Type 2 diabetes mellitus with other circulatory complications; Z79.4 Long term (current) use of insulin; E78.2 Mixed hyperlipidemia
CPT/HCPCS: 36415; 71046; 78452; 80053; 80061; 82962; 84484; 85025; 85610; 85730; 93005; 93010; 93017; 93306; G0378; A9502; J1644; J2785

== ENCOUNTER 2020-05-30 01:07 | Emergency (ER) | payer MEDICAID ==
[2020-05-30] MEDS ORDERED: ASPIRIN 325 MG TAB PO ONE (01:22)
[2020-05-30 01:46] LABS: Hematocrit 36.5 % (30.3-42.9); Lymphocytes % (Auto) 36.8 % (13.4-35.0); Mean Corpuscular HGB Conc 33 % (30-34); Mean Corpuscular Volume 79 fl (79-97); Platelet Count 397 K/mm3 (140-440); Red Blood Count 4.64 M/mm3 (3.65-5.03); Red Cell Distribution Width 15.4 % (13.2-15.2)
[2020-05-30 01:47] LABS: Basophils # (Auto) 0.2 K/mm3 (0.0-0.1); Basophils % (Auto) 1.3 % (0.0-1.8); Eosinophils # (Auto) 0.2 K/mm3 (0.0-0.4); Eosinophils % (Auto) 1.5 % (0.0-4.3); Monocytes # (Auto) 0.8 K/mm3 (0.0-0.8); Monocytes % (Auto) 6.3 % (0.0-7.3)
--- NOTE | 2020-05-30 02:03 | XRay Report ---
CHEST 1 VIEW INDICATION: Chest Pain COMPARISON: 03/25/2020 FINDINGS: Support devices: None Heart: Normal and unchanged Lungs/Pleura: No acute pulmonary or pleural findings. IMPRESSION: 1. No significant abnormality and no interval change. Signer Name: Davey Quiñonez MD Signed: 05/30/2020 1:59 AM Workstation Name: [id number]
[2020-05-30 02:13] LABS: BUN/Creatinine Ratio 14; Blood Urea Nitrogen 13 mg/dL (7-17); Calcium 9.6 mg/dL (8.4-10.2); Hemolysis Index 1
[2020-05-30 02:21] LABS: Free T4 (Free Thyroxine) 1.09 ng/dL (0.76-1.46)
[2020-05-30 04:19] VITALS: BP 139/83
== END 2020-05-30 07:00 | disposition left against medical advice (07) ==
LOC: ED 01:07
DX: H92.03 Otalgia, bilateral (principal); Z53.21 Procedure and treatment not carried out due to patient leaving prior to being seen by health care provider
CPT/HCPCS: 36415; 71045; 80048; 84439; 84443; 84484; 85025; 93005

== ENCOUNTER 2020-06-05 09:04 | Emergency (ER) | payer MEDICAID ==
[2020-06-05] MEDS ORDERED: ALUM-MAG HYDROXIDE-SIMETHICONE 200-200-20MG/5ML ORAL LIQD 30 ML PO ONE (10:59)
[2020-06-05] MEDS ORDERED: HYOSCYAMINE SUBL 0.125 MG TAB SL ONE (10:59)
[2020-06-05] MEDS ORDERED: LIDOCAINE VISCOUS 2% 15 ML ORAL LIQD PO ONE (11:00)
[2020-06-05 11:13] VITALS: BP 158/91
--- NOTE | 2020-06-05 11:21 | Emergency Department Report ---
ED General Adult HPI - General Chief complaint: Abdominal Pain Stated complaint: ACID REFLUX Time Seen by Provider: 06/05/20 10:51 Source: patient Mode of arrival: Ambulatory Limitations: No Limitations - History of Present Illness Initial comments: Patient is a 55-year-old female presents emergency room with complaints of feeling esophageal spasms for 2 to 3 weeks. She states that she mostly feels a sensation at night. She states that she also has a burning sensation, increased acid reflux and increased gas. She states that on April 11 she had an endoscopy/colonoscopy where they found esophageal narrowing and did a dilatation. She states over the last 2 to 3 weeks she has had these symptoms. She has not followed up with GI. She states that she is currently taking pantoprazole and famotidine. She states that she does frequently eat and then lay down. She states that she has attempted to change her diet. She is tolerating p.o. intake without difficulty and swallowing without difficulty. She denies any nausea, vomiting, diarrhea, fever, cough, shortness of breath, hemoptysis, chest pain, abdominal pain. She has a past medical history of hypertension and states that she takes amlodipine and enalapril. she states that she did not take her medication yet this morning but does have it at home. She denies any allergies to medications. Severity scale (0 -10): 9 - Related Data Home Medications Medication Instructions Recorded Confirmed Last Taken AtorvaSTATin [Lipitor] PO DAILY 11/15/19 11/13/19 Clopidogrel [Plavix] 75 mg PO QDAY 11/15/19 11/15/19 11/14/19 Ramipril PO DAILY 11/15/19 11/14/19 Sitagliptin Phosphate [Januvia] 50 mg PO DAILY 11/15/19 11/15/19 Unknown amLODIPine 10 mg PO DAILY 11/15/19 11/15/19 11/14/19 Previous Rx's Medication Instructions Recorded Last Taken Type Cetirizine HCl [Zyrtec 10mg tab] 10 mg PO DAILY #30 tablet 08/10/19 11/14/19 Rx Fluticasone [Flonase] 1 spray NS QDAY #1 bottle 08/10/19 11/14/19 Rx Albuterol Mdi (or & Nicu Only) 2 puff IH QID PRN #1 inh 09/07/19 11/14/19 Rx [ProAir HFA Inhaler] Mag Hydrox/Aluminum Hyd/Simeth 10 ml PO QHS PRN #1 oral.susp 03/25/20 Unknown Rx [Mylanta Maximum Strength Liq] Mag Hydrox/Aluminum Hyd/Simeth 10 ml PO QID #1 bottle 06/05/20 Unknown Rx [Maalox Advanced Suspension] Sucralfate [Carafate] 1 gm PO ACHS 7 Days #21 tablet 06/05/20 Unknown Rx Allergies Allergy/AdvReac Type Severity Reaction Status Date / Time No Known Allergies Allergy Verified 09/06/19 17:43 ED Review of Systems ROS: Stated complaint: ACID REFLUX Other details as noted in HPI Comment: All other systems reviewed and negative ED Past Medical Hx - Past Medical History Hx Hypertension: Yes Hx Deep Vein Thrombosis: Yes (on Plavix stent in R leg) Hx GERD: Yes Hx HIV: No Additional medical history: high cholesterol - Surgical History Additional Surgical History: Stent placed Right Leg - Social History Smoking Status: Never Smoker Substance Use Type: None - Medications Home Medications: Home Medications Medication Instructions Recorded Confirmed Last Taken Type Cetirizine HCl [Zyrtec 10mg tab] 10 mg PO DAILY #30 tablet 08/10/19 11/15/19 11/14/19 Rx Fluticasone [Flonase] 1 spray NS QDAY #1 bottle 08/10/19 11/15/19 11/14/19 Rx Albuterol Mdi (or & Nicu Only) 2 puff IH QID PRN #1 inh 09/07/19 11/15/19 11/14/19 Rx [ProAir HFA Inhaler] AtorvaSTATin [Lipitor] PO DAILY 11/15/19 11/13/19 History Clopidogrel [Plavix] 75 mg PO QDAY 11/15/19 11/15/19 11/14/19 History Ramipril PO DAILY 11/15/19 11/14/19 History Sitagliptin Phosphate [Januvia] 50 mg PO DAILY 11/15/19 11/15/19 Unknown History amLODIPine 10 mg PO DAILY 11/15/19 11/15/19 11/14/19 History Mag Hydrox/Aluminum Hyd/Simeth 10 ml PO QHS PRN #1 oral.susp 03/25/20 Unknown Rx [Mylanta Maximum Strength Liq] Mag Hydrox/Aluminum Hyd/Simeth 10 ml PO QID #1 bottle 06/05/20 Unknown Rx [Maalox Advanced Suspension] Sucralfate [Carafate] 1 gm PO ACHS 7 Days #21 tablet 06/05/20 Unknown Rx ED Physical Exam - General Limitations: No Limitations General appearance: alert, in no apparent distress - Head Head exam: Present: atraumatic, normocephalic - Eye Eye exam: Present: normal appearance - ENT ENT exam: Present: normal orophraynx, mucous membranes moist, TM's normal bilaterally, normal external ear exam - Neck Neck exam: Present: normal inspection, full ROM, other (no crepitus, no masses, no hematoma). Absent: tenderness, meningismus, lymphadenopathy, thyromegaly - Respiratory Respiratory exam: Present: normal lung sounds bilaterally. Absent: respiratory distress, wheezes, rales, rhonchi, stridor, chest wall tenderness, accessory muscle use, decreased breath sounds, prolonged expiratory - Cardiovascular Cardiovascular Exam: Present: regular rate, normal rhythm, normal heart sounds. Absent: systolic murmur, diastolic murmur, rubs, gallop - GI/Abdominal GI/Abdominal exam: Present: soft, normal bowel sounds. Absent: distended, tenderness, guarding, rebound, rigid - Neurological Exam Neurological exam: Present: alert, oriented X3 - Psychiatric Psychiatric exam: Present: normal affect, normal mood - Skin Skin exam: Present: warm, dry, intact ED Course Vital Signs 06/05/20 06/05/20 09:25 11:12 Temperature 99.1 F Pulse Rate 97 H 87 Respiratory 20 18 Rate Blood Pressure 173/100 158/91 [Right] O2 Sat by Pulse 96 99 Oximetry ED Medical Decision Making - Lab Data Vital Signs 06/05/20 06/05/20 09:25 11:12 Temperature 99.1 F Pulse Rate 97 H 87 Respiratory 20 18 Rate Blood Pressure 173/100 158/91 [Right] O2 Sat by Pulse 96 99 Oximetry - Medical Decision Making Patient is a 55-year-old female presents emergency room with complaints of feeling esophageal spasms for 2 to 3 weeks. She states that she mostly feels a sensation at night. She states that she also has a burning sensation, increased acid reflux and increased gas. She states that on April 11 she had an endoscopy/colonoscopy where they found esophageal narrowing and did a dilatation. She states over the last 2 to 3 weeks she has had these symptoms. She has not followed up with GI. She states that she is currently taking pantoprazole and famotidine. She states that she does frequently eat and then lay down. She states that she has attempted to change her diet. She is tolerating p.o. intake without difficulty and swallowing without difficulty. She denies any nausea, vomiting, diarrhea, fever, cough, shortness of breath, hemoptysis, chest pain, abdominal pain. She has a past medical history of hypertension and states that she takes amlodipine and enalapril. she states that she did not take her medication yet this morning but does have it at home. She denies any allergies to medications. Initial vitals with elevated blood p ressure which improved upon repeat. Patient states that she does have her blood pressure medication at home and will take it when she returns home. No abnormality on physical examination as documented in chart. Patient given oral medications and symptoms improved and she was feeling much better ready to go home. She was able tolerate p.o. intake without difficulty. Patient will be referred to her GI specialist to discuss her symptoms that she is experiencing, discussed strict return precautions with patient. Patient given prescription for Maalox and Carafate. Advised patient Please take medication as prescribed. Please continue taking your home medication including your blood pressure medication. Follow-up with your primary care doctor. Follow-up with a GI doctor. Please follow the diet for acid reflux, avoid large meals, avoid eating and laying flat. Return to emergency room for any new or worsening symptoms. Critical care attestation.: If time is entered above; I have spent that time in minutes in the direct care of this critically ill patient, excluding procedure time. ED Disposition Clinical Impression: Esophageal spasm GERD (gastroesophageal reflux disease) Qualifiers: Esophagitis presence: without esophagitis Qualified Code(s): K21.9 - Gastro- esophageal reflux disease without esophagitis Disposition: - TO HOME OR SELFCARE Is pt being admited?: No Does the pt Need Aspirin: No Condition: Stable Instructions: Diet for Ulcers and Gastritis (ED), Gastroesophageal Reflux Disease (ED), Esophageal Spasm (ED) Additional Instructions: Please take medication as prescribed. Please continue taking your home medication including your blood pressure medication. Follow-up with your primary care doctor. Follow-up with a GI doctor. Please follow the diet for acid reflux, avoid large meals, avoid eating and laying flat. Return to emergency room for any new or worsening symptoms. Prescriptions: Sucralfate [Carafate] 1 gm PO ACHS 7 Days #21 tablet Mag Hydrox/Aluminum Hyd/Simeth [Maalox Advanced Suspension] 10 ml PO QID #1 bottle Referrals: PRIMARY CARE, [Primary Care Provider] - 2-3 Days [facility] [Provider Group] - 2-3 Days Time of Disposition: 11:57 Print Language: INDONESIAN
== END 2020-06-05 12:12 | disposition home or self-care (01) ==
LOC: ED 09:04
DX: K21.9 Gastro-esophageal reflux disease without esophagitis (principal); K22.4 Dyskinesia of esophagus; I10 Essential (primary) hypertension; E78.00 Pure hypercholesterolemia, unspecified; Z79.899 Other long term (current) drug therapy; Z98.890 Other specified postprocedural states
CPT/HCPCS: 99282

== ENCOUNTER 2020-09-17 09:15 | Emergency (ER) | payer MEDICAID ==
--- NOTE | 2020-09-17 09:37 | Event Note ---
ED Screening Note Date of service: 09/17/20 Time: 09:31 ED Screening Note: Patient reports low back pain/bilateral flank pain/low abd pain, mild SOB, and acid reflux flare up. Onset 5 days ago. This initial assessment/diagnostic orders/clinical plan/treatment(s) is/are subject to change based on patients health status, clinical progression and re- assessment by fellow clinical providers in the ED. Further treatment and workup at subsequent clinical providers discretion. Patient/guardian urged not to elope from the ED as their condition may be serious if not clinically assessed and managed. Initial orders include: cbc CMP EKG Chest xray Urinalysis
[2020-09-17 09:55] LABS: Basophils # (Auto) 0.1 K/mm3 (0.0-0.1); Basophils % (Auto) 0.8 % (0.0-1.8); Eosinophils # (Auto) 0.5 K/mm3 (0.0-0.4); Eosinophils % (Auto) 5.1 % (0.0-4.3); Hematocrit 36.9 % (30.3-42.9); Hemoglobin 11.8 gm/dl (10.1-14.3); Lymphocytes % (Auto) 34.1 % (13.4-35.0); Mean Corpuscular HGB Conc 32 % (30-34); Mean Corpuscular Volume 78 fl (79-97); Monocytes # (Auto) 0.6 K/mm3 (0.0-0.8); Monocytes % (Auto) 6.8 % (0.0-7.3); Platelet Count 394 K/mm3 (140-440); Red Blood Count 4.73 M/mm3 (3.65-5.03); Red Cell Distribution Width 15.9 % (13.2-15.2)
--- NOTE | 2020-09-17 10:01 | XRay Report ---
XR chest routine 2V INDICATION / CLINICAL INFORMATION: SOB. COMPARISON: 05/30/2020 FINDINGS: SUPPORT DEVICES: None. HEART /PULMONARY VASCULATURE: No significant abnormality. LUNGS / PLEURA: No significant pulmonary or pleural abnormality. No pneumothorax. ADDITIONAL FINDINGS: No significant additional findings. IMPRESSION: 1. No acute findings. Signer Name: Morteza Jefferson MD Signed: 09/17/2020 9:57 AM Workstation Name: [id number]
[2020-09-17 10:13] LABS: Alanine Aminotransferase 17 units/L (7-56); Albumin 4.3 g/dL (3.9-5); BUN/Creatinine Ratio 13; Blood Urea Nitrogen 10 mg/dL (7-17); Hemolysis Index 7
[2020-09-17 10:46] LABS: Bacteria,Urine 4+ /HPF (Negative); Bilirubin,Urine NEG (Negative); Blood,Urine NEG (Negative); Color,Urine Yellow (Yellow); Mucus,Urine FEW /HPF; Protein,Urine <15 mg/dL mg/dL (Negative); Urobilinogen,Urine < 2.0 mg/dL (<2.0)
--- NOTE | 2020-09-17 14:08 | Emergency Department Report ---
ED Back Pain/Injury HPI - General Chief Complaint: Abdominal Pain Stated Complaint: KIDNEY PAIN Time Seen by Provider: 09/17/20 13:26 Source: patient Limitations: No Limitations - History of Present Illness Initial Comments: CC: "Something is wrong with my kidneys." HPI: This is a 55 yo female with hx of allergic rhinitis, PAD s/p stent, GERD, HTN, dyslipidemia who presents with bilateral flank pain for one week. Patient has mild stomach cramping also. She suspects new supplements are the cause. Patient has started taking herbal supplements in order to decrease her risk of noel COVID-19. She has mild flank pain. No change with movement. No fever. No vomiting. No hematuria. MD Complaint: back pain -: Gradual, days(s) (7) Similar Symptoms Previously: No Place: home Severity: mild Quality: dull, aching Consistency: constant Worsens With: none Context: unknown Associated Symptoms: other (abdominal pain) - Related Data Home Medications Medication Instructions Recorded Confirmed Last Taken AtorvaSTATin [Lipitor] PO DAILY 11/15/19 11/13/19 Clopidogrel [Plavix] 75 mg PO QDAY 11/15/19 11/15/19 11/14/19 Ramipril PO DAILY 11/15/19 11/14/19 Sitagliptin Phosphate [Januvia] 50 mg PO DAILY 11/15/19 11/15/19 Unknown amLODIPine 10 mg PO DAILY 11/15/19 11/15/19 11/14/19 Previous Rx's Medication Instructions Recorded Last Taken Type Cetirizine HCl [Zyrtec 10mg tab] 10 mg PO DAILY #30 tablet 08/10/19 11/14/19 Rx Fluticasone [Flonase] 1 spray NS QDAY #1 bottle 08/10/19 11/14/19 Rx Albuterol Mdi (or & Nicu Only) 2 puff IH QID PRN #1 inh 09/07/19 11/14/19 Rx [ProAir HFA Inhaler] Mag Hydrox/Aluminum Hyd/Simeth 10 ml PO QHS PRN #1 oral.susp 03/25/20 Unknown Rx [Mylanta Maximum Strength Liq] Mag Hydrox/Aluminum Hyd/Simeth 10 ml PO QID #1 bottle 06/05/20 Unknown Rx [Maalox Advanced Suspension] Sucralfate [Carafate] 1 gm PO ACHS 7 Days #21 tablet 06/05/20 Unknown Rx cephALEXin [Keflex] 500 mg PO Q6HR 5 Days #20 capsule 09/17/20 Unknown Rx Allergies Allergy/AdvReac Type Severity Reaction Status Date / Time No Known Allergies Allergy Verified 09/17/20 09:19 ED Review of Systems ROS: Stated complaint: KIDNEY PAIN Other details as noted in HPI Comment: All other systems reviewed and negative Constitutional: denies: fever Respiratory: denies: cough, shortness of breath Gastrointestinal: abdominal pain. denies: nausea, vomiting Musculoskeletal: back pain ED Past Medical Hx - Past Medical History Previous Medical History?: Yes Hx Hypertension: Yes Hx GERD: Yes Hx HIV: No Additional medical history: Peripheral artery disease, high cholesterol - Surgical History Past Surgical History?: Yes Additional Surgical History: Stent placed Right Leg - Social History Smoking Status: Never Smoker Substance Use Type: None - Medications Home Medications: Home Medications Medication Instructions Recorded Confirmed Last Taken Type Cetirizine HCl [Zyrtec 10mg tab] 10 mg PO DAILY #30 tablet 08/10/19 11/15/19 11/14/19 Rx Fluticasone [Flonase] 1 spray NS QDAY #1 bottle 08/10/19 11/15/19 11/14/19 Rx Albuterol Mdi (or & Nicu Only) 2 puff IH QID PRN #1 inh 09/07/19 11/15/19 11/14/19 Rx [ProAir HFA Inhaler] AtorvaSTATin [Lipitor] PO DAILY 11/15/19 11/13/19 History Clopidogrel [Plavix] 75 mg PO QDAY 11/15/19 11/15/19 11/14/19 History Ramipril PO DAILY 11/15/19 11/14/19 History Sitagliptin Phosphate [Januvia] 50 mg PO DAILY 11/15/19 11/15/19 Unknown History amLODIPine 10 mg PO DAILY 11/15/19 11/15/19 11/14/19 History Mag Hydrox/Aluminum Hyd/Simeth 10 ml PO QHS PRN #1 oral.susp 03/25/20 Unknown Rx [Mylanta Maximum Strength Liq] Mag Hydrox/Aluminum Hyd/Simeth 10 ml PO QID #1 bottle 06/05/20 Unknown Rx [Maalox Advanced Suspension] Sucralfate [Carafate] 1 gm PO ACHS 7 Days #21 tablet 06/05/20 Unknown Rx cephALEXin [Keflex] 500 mg PO Q6HR 5 Days #20 capsule 09/17/20 Unknown Rx ED Physical Exam - General Limitations: No Limitations General appearance: alert, in no apparent distress, other (pleasant, smiling, talkative) - Head Head exam: Present: atraumatic, normocephalic - Eye Eye exam: Present: normal appearance - ENT ENT exam: Present: mucous membranes moist - Neck Neck exam: Present: normal inspection, full ROM - Respiratory Respiratory exam: Present: normal lung sounds bilaterally. Absent: respiratory distress, wheezes, rales, rhonchi - Cardiovascular Cardiovascular Exam: Present: regular rate, normal rhythm, normal heart sounds. Absent: systolic murmur, diastolic murmur, rubs, gallop - GI/Abdominal GI/Abdominal exam: Present: soft, normal bowel sounds. Absent: distended, tenderness, guarding - Extremities Exam Extremities exam: Present: normal inspection - Neurological Exam Neurological exam: Present: alert, oriented X3 - Psychiatric Psychiatric exam: Present: normal affect, normal mood - Skin Skin exam: Present: warm, dry, intact, normal color. Absent: rash ED Course Vital Signs 09/17/20 09:21 Temperature 97.9 F Pulse Rate 97 H Respiratory 18 Rate Blood Pressure 140/81 O2 Sat by Pulse 99 Oximetry ED Medical Decision Making - Lab Data Result diagrams: 09/17/20 09:40 09/17/20 09:40 Laboratory Tests 09/17/20 09/17/20 09/17/20 09:40 09:40 Unknown WBC 8.9 RBC 4.73 Hgb 11.8 Hct 36.9 MCV 78 L MCH 25 L MCHC 32 RDW 15.9 H Plt Count 394 Lymph % (Auto) 34.1 [place] % (Auto) 6.8 Eos % (Auto) 5.1 H Baso % (Auto) 0.8 Lymph # (Auto) 3.0 [place] # (Auto) 0.6 Eos # (Auto) 0.5 H Baso # (Auto) 0.1 Seg Neutrophils % 53.2 Seg Neutrophils # 4.8 Sodium 139 Potassium 4.5 Chloride 102.5 Carbon Dioxide 25 Anion Gap 16 BUN 10 Creatinine 0.8 Estimated GFR > 60 BUN/Creatinine Ratio 13 Glucose 116 H Calcium 9.0 Total Bilirubin 0.20 AST 14 ALT 17 Alkaline Phosphatase 92 Troponin T < 0.010 Total Protein 7.5 Albumin 4.3 Albumin/Globulin Ratio 1.3 Lipase 31 Urine Color Yellow Urine Turbidity Clear Urine pH 7.0 Ur Specific [place] 1.013 Urine Protein <15 mg/dl Urine Glucose (UA) Neg Urine Ketones Neg Urine Blood Neg Urine Nitrite Neg Urine Bilirubin Neg Urine Urobilinogen < 2.0 Ur Leukocyte Esterase Neg Urine WBC (Auto) 1.0 Urine RBC (Auto) 1.0 U Epithel Cells (Auto) 3.0 Urine Bacteria (Auto) 4+ Urine Mucus Few - Radiology Data Radiology results: report reviewed Chest radiograph: No acute findings - Medical Decision Making 1. Bilateral flank pain. Suspect muscular also pain. However 4+ bacteria is in urine. Will prescribe 5 doses of Keflex in order to address UTI. Recommended [id number] Tylenol as needed for pain. 2. Abdominal pain: I do suspect irritable bowel syndrome due to new supplements. I recommended discontinuing the herbal medication. Patient discharged home. CBC chemistry within normal limits. Chest radiograph no acute findings. Critical care attestation.: If time is entered above; I have spent that time in minutes in the direct care of this critically ill patient, excluding procedure time. ED Disposition Clinical Impression: Bilateral flank pain, UTI (urinary tract infection), Abdominal pain Disposition: TO HOME OR SELFCARE Is pt being admited?: No Does the pt Need Aspirin: No Condition: Stable Instructions: Abdominal Pain (ED), Flank Pain, Adult, [id number] Prescriptions: cephALEXin [Keflex] 500 mg PO Q6HR 5 Days #20 capsule Referrals: PRIMARY CARE, [Primary Care Provider] - 3-5 Days
[2020-09-17 14:40] VITALS: BP 154/74
== END 2020-09-17 14:42 | disposition home or self-care (01) ==
LOC: ED 09:15
DX: N39.0 Urinary tract infection, site not specified (principal); R10.9 Unspecified abdominal pain; I10 Essential (primary) hypertension; K21.9 Gastro-esophageal reflux disease without esophagitis; Z98.890 Other specified postprocedural states; Z79.899 Other long term (current) drug therapy
CPT/HCPCS: 36415; 71046; 80053; 81001; 83690; 84484; 85025

== ENCOUNTER 2020-10-21 09:44 | Emergency (ER) | payer MEDICAID ==
[2020-10-21 10:18] VITALS: BP 134/66
--- NOTE | 2020-10-21 11:06 | Emergency Department Report ---
ED General Adult HPI - General Chief complaint: High BP Stated complaint: BP/LEFT EAR PAIN/ZEPEDA Time Seen by Provider: 10/21/20 10:15 Source: patient Mode of arrival: Ambulatory Limitations: No Limitations - History of Present Illness Initial comments: 55 yo AA F pt with hx of allergic rhinitis, PAD s/p stent, GERD, HTN, and dyslipidemia presents with complaints of intermittent facial pain and elevated BP x 5 days and chronic bilateral ear pain x 5 months. She states that the facial pain are relieved with tylenol and that she is currently taking zyrtec and claritin for her allergies. She denies any fever/chills/sweats, facial swelling, skin changes, ear drainage or hearing loss. Pt reports though she is compliant with her BP meds at home, her systolic BP has been spiking up to about 170. She denies any numbness/tingling/weakness in her limbs, difficulty with speech/ambulation, confusion, memory loss, dizziness, or vision changes. No hx of CVA or head trauma or current headache/facial pain. Pt states when the facial pain occurs, it causes her left eye to water and itch. - Related Data Home Medications Medication Instructions Recorded Confirmed Last Taken AtorvaSTATin [Lipitor] PO DAILY 11/15/19 11/13/19 Clopidogrel [Plavix] 75 mg PO QDAY 11/15/19 11/15/19 11/14/19 Ramipril PO DAILY 11/15/19 11/14/19 Sitagliptin Phosphate [Januvia] 50 mg PO DAILY 11/15/19 11/15/19 Unknown amLODIPine 10 mg PO DAILY 11/15/19 11/15/19 11/14/19 Previous Rx's Medication Instructions Recorded Last Taken Type Cetirizine HCl [Zyrtec 10mg tab] 10 mg PO DAILY #30 tablet 08/10/19 11/14/19 Rx Fluticasone [Flonase] 1 spray NS QDAY #1 bottle 08/10/19 11/14/19 Rx Albuterol Mdi (or & Nicu Only) 2 puff IH QID PRN #1 inh 09/07/19 11/14/19 Rx [ProAir HFA Inhaler] Mag Hydrox/Aluminum Hyd/Simeth 10 ml PO QHS PRN #1 oral.susp 03/25/20 Unknown Rx [Mylanta Maximum Strength Liq] Mag Hydrox/Aluminum Hyd/Simeth 10 ml PO QID #1 bottle 06/05/20 Unknown Rx [Maalox Advanced Suspension] Sucralfate [Carafate] 1 gm PO ACHS 7 Days #21 tablet 06/05/20 Unknown Rx cephALEXin [Keflex] 500 mg PO Q6HR 5 Days #20 capsule 09/17/20 Unknown Rx Levocetirizine Dihydrochloride 5 mg PO QHS 30 Days #30 tablet 10/21/20 Unknown Rx [Xyzal] Allergies Allergy/AdvReac Type Severity Reaction Status Date / Time No Known Allergies Allergy Verified 09/17/20 09:19 ED Review of Systems ROS: Stated complaint: BP/LEFT EAR PAIN/ZEPEDA Other details as noted in HPI Constitutional: denies: chills, diaphoresis, fever, malaise Eyes: denies: eye pain, vision change ENT: denies: throat pain Respiratory: denies: cough, shortness of breath Cardiovascular: denies: chest pain, edema, syncope Endocrine: denies: excessive sweating Gastrointestinal: denies: abdominal pain, nausea, vomiting Skin: denies: rash, lesions, change in color Neurological: denies: headache, weakness, numbness, paresthesias, confusion, abnormal gait Hematological/Lymphatic: denies: easy bleeding ED Past Medical Hx - Past Medical History Previous Medical History?: Yes Hx Hypertension: Yes Hx Deep Vein Thrombosis: Yes (on Plavix stent in R leg) Hx GERD: Yes Hx HIV: No Additional medical history: Peripheral artery disease, high cholesterol - Surgical History Past Surgical History?: Yes Additional Surgical History: Stent placed Right Leg - Social History Smoking Status: Never Smoker Substance Use Type: None - Medications Home Medications: Home Medications Medication Instructions Recorded Confirmed Last Taken Type Cetirizine HCl [Zyrtec 10mg tab] 10 mg PO DAILY #30 tablet 08/10/19 11/15/19 11/14/19 Rx Fluticasone [Flonase] 1 spray NS QDAY #1 bottle 08/10/19 11/15/19 11/14/19 Rx Albuterol Mdi (or & Nicu Only) 2 puff IH QID PRN #1 inh 09/07/19 11/15/19 11/14/19 Rx [ProAir HFA Inhaler] AtorvaSTATin [Lipitor] PO DAILY 11/15/19 11/13/19 History Clopidogrel [Plavix] 75 mg PO QDAY 11/15/19 11/15/19 11/14/19 History Ramipril PO DAILY 11/15/19 11/14/19 History Sitagliptin Phosphate [Januvia] 50 mg PO DAILY 11/15/19 11/15/19 Unknown History amLODIPine 10 mg PO DAILY 11/15/19 11/15/19 11/14/19 History Mag Hydrox/Aluminum Hyd/Simeth 10 ml PO QHS PRN #1 oral.susp 03/25/20 Unknown Rx [Mylanta Maximum Strength Liq] Mag Hydrox/Aluminum Hyd/Simeth 10 ml PO QID #1 bottle 06/05/20 Unknown Rx [Maalox Advanced Suspension] Sucralfate [Carafate] 1 gm PO ACHS 7 Days #21 tablet 06/05/20 Unknown Rx cephALEXin [Keflex] 500 mg PO Q6HR 5 Days #20 capsule 09/17/20 Unknown Rx Levocetirizine Dihydrochloride 5 mg PO QHS 30 Days #30 tablet 10/21/20 Unknown Rx [Xyzal] ED Physical Exam - General Limitations: No Limitations General appearance: alert, in no apparent distress - Head Head exam: Present: atraumatic, normocephalic - Eye Eye exam: Present: normal appearance, PERRL, EOMI. Absent: scleral icterus, conjunctival injection - ENT ENT exam: Present: normal exam, TM's normal bilaterally, normal external ear exam. Absent: other (no sinus tenderness to palpation noted ) - Neck Neck exam: Present: normal inspection, full ROM - Respiratory Respiratory exam: Absent: normal lung sounds bilaterally, respiratory distress - Cardiovascular Cardiovascular Exam: Present: regular rate, normal rhythm - Back Exam Back exam: Present: full ROM - Neurological Exam Neurological exam: Present: alert, oriented X3, CN II-XII intact, normal gait. Absent: motor sensory deficit - Expanded Neurological Exam Expanded Cerebellar function: Finger to Nose: Normal, Romberg: Normal Sensory exam: Upper Extremity Light Touch: Normal, Lower Extremity Light Touch: Normal Motor strength exam: RUE: 5, LUE: 5, RLE: 5, LLE: 5 - Psychiatric Psychiatric exam: Present: normal affect, normal mood - Skin Skin exam: Present: warm, dry, intact, normal color. Absent: rash ED Course Vital Signs 10/21/20 10:16 Temperature 98.1 F Pulse Rate 78 Respiratory 20 Rate Blood Pressure 134/66 O2 Sat by Pulse 100 Oximetry ED Medical Decision Making - Medical Decision Making 55 yo AA F pt with hx of allergic rhinitis, PAD s/p stent, GERD, HTN, and dyslipidemia presents with complaints of intermittent facial pain and elevated BP x 5 days and chronic bilateral ear pain x 5 months. She states that the facial pain are relieved with tylenol and that she is currently taking zyrtec and claritin for her allergies. She denies any fever/chills/sweats, facial swelling, skin changes, ear drainage or hearing loss. Pt reports though she is compliant with her BP meds at home, her systolic BP has been spiking up to about 170. She denies any numbness/tingling/weakness in her limbs, difficulty with speech/ambulation, confusion, memory loss, dizziness, or vision changes. No hx of CVA or head trauma or current headache/facial pain. Pt states when the facial pain occurs, it causes her left eye to water and itch. Neuro exam is normal. ENT exam is normal. Pt denies any current facial pain. Her blood pressure is 134/66 today her in ED. Recommend f/u with ENT for eval of her ear and sinus complaints. PT to d/c claritin and zyrtec and try levocetirizine. She is well-appearing and stable for d/c home. Strict return precautions were discussed in detail with pt who verbalizes. Critical care attestation.: If time is entered above; I have spent that time in minutes in the direct care of this critically ill patient, excluding procedure time. ED Disposition Clinical Impression: Chronic pain of both ears, Frontal sinus pain Disposition: DC-01 TO HOME OR SELFCARE Is pt being admited?: No Condition: Stable Instructions: Earache, Adult, Sinus Headache Additional Instructions: Discontinue Zyrtec and Claritin for now. Start taking Levocetirizine as prescribed Prescriptions: Levocetirizine Dihydrochloride [Xyzal] 5 mg PO QHS 30 Days #30 tablet
== END 2020-10-21 11:30 | disposition home or self-care (01) ==
LOC: ED 09:44
DX: R51.9 Headache, unspecified (principal); H92.03 Otalgia, bilateral; G89.29 Other chronic pain; I10 Essential (primary) hypertension; K21.9 Gastro-esophageal reflux disease without esophagitis; Z98.890 Other specified postprocedural states; Z79.899 Other long term (current) drug therapy
CPT/HCPCS: 99282

== ENCOUNTER 2021-11-19 19:27 | Emergency (ER) | payer MEDICAID | END 2021-11-19 19:49 | disposition left against medical advice (07) | LOC: ED 19:27 | DX: M79.604 Pain in right leg (principal); Z53.21 Procedure and treatment not carried out due to patient leaving prior to being seen by health care provider ==